=== PATIENT | female | born 1965 | race Caucasian/White ===

== ENCOUNTER 2023-04-07 12:44 | Emergency (ER) | payer OTHER ==
[2023-04-07] MEDS ORDERED: Lidocaine 1% with EPINEPHrine 1:100,000 50 ML MDV INFILT ONE (13:09)
[2023-04-07] MEDS ORDERED: Lidocaine 1% with EPINEPHrine 1:100,000 20 ML MDV INJECT ONE (13:11)
[2023-04-07] MEDS ORDERED: Bacitracin Oint 1 GM U/D Packet TOP ONE (13:12)
== END 2023-04-07 13:45 | disposition home or self-care (01) ==
LOC: LB.ED 12:44
DX: S01.112A Laceration without foreign body of left eyelid and periocular area, initial encounter (principal); I10 Essential (primary) hypertension; E11.9 Type 2 diabetes mellitus without complications; Z79.899 Other long term (current) drug therapy; W20.8XXA Other cause of strike by thrown, projected or falling object, initial encounter; Y92.015 Private garage of single-family (private) house as the place of occurrence of the external cause
CPT/HCPCS: 12014; 99283